=== PATIENT | female | born 1975 | race Caucasian/White ===

== ENCOUNTER 2021-04-25 12:37 | Inpatient (IN) | payer MEDICAID, SELFPAY ==
[2021-04-25 12:38] VITALS: BP 125/86; PULSE 98; RESP 14; TEMP 37.9; O2SAT 94; BMI 33.4
--- NOTE | 2021-04-25 12:38 | ECG_ITS ---
APPROVED REPORT Exam: Resting ECG HR:91 bpm ECG Measurements Heart Rate 91 AXES IA 184 P 57 QRSd 74 QRS 46 QT 370 T 102 QTc 455 Conclusion Normal sinus rhythm Nonspecific T wave abnormality Abnormal ECG Electronically signed by : Angel Crain MD 04/27/2021 11:49:09
[2021-04-25 13:01] VITALS: BP 100/53; PULSE 96; RESP 19; O2SAT 92
--- NOTE | 2021-04-25 13:01 | XR_ITS ---
PROCEDURE: XR CHEST PORTABLE CLINICAL HISTORY: cough COMPARISON: No exams were available for comparison FINDINGS: The cardiomediastinal silhouette and pulmonary vascularity are within normal limits. Patchy density is present in the right lung base consistent with atelectasis or infiltrate with elevated right hemidiaphragm. Left lung is clear. There may be a small effusion as well on the right. There is also some increased density in the right lower lobe laterally No acute bony abnormalities. IMPRESSION: Right basilar atelectasis and or infiltrate with trace effusion Dictated by: Tu Bonds MD 04/25/2021 13:46 Tu Bonds MD in [place] 04/25/2021 13:46
[2021-04-25 13:14] LABS: Influenza A, PCR Not Detected (NotDetected); Influenza B, PCR Not Detected (NotDetected)
[2021-04-25 13:15] LABS: Basophils % 0.3 % (0.1-2.0); Eosinophils % 0.3 % (0.1-12.0); Hematocrit 40.6 % (37.0-47.0); Hemoglobin 13.3 g/dL (12.2-16.2); Lymphocytes # 0.8 K/mm3 (0.7-4.5); Lymphocytes % 9.6 % (10-50); Mean Corpuscular HGB Conc 32.8 g/dL (31.8-35.4); Mean Corpuscular Hemoglobin 28.8 pg (27.0-31.2); Mean Corpuscular Volume 87.8 fl (81-99); Mean Platelet Volume 8.3 fl (7.4-10.4); Monocytes # 0.1 K/mm3 (0.1-1.0); Monocytes % 1.6 % (1.7-9.3); Neutrophils # 7.8 K/mm3 (1.8-7.8); Neutrophils % 88.2 % (37.0-80.0); Platelet Count 223 K/mm3 (142-424); Red Blood Count 4.63 M/mm3 (4.20-5.40); Red Cell Distribution Width 14.2 % (11.5-17.5); White Blood Count 8.8 K/mm3 (4.8-10.8)
[2021-04-25 13:18] LABS: Chloride 101 mmol/L (98-107); Potassium 4.2 mmoL/L (3.5-5.1); Sodium 138 mmol/L (136-145)
[2021-04-25 13:20] LABS: Alanine Aminotransferase 22 U/L (12-78); Aspartate Amino Transferase 34 U/L (14-36); Blood Urea Nitrogen 9 mg/dl (7-17); Creatinine Clearance Estimated 162 mL/min (50-200); Estimated Glomerular Filt Rate 91 ml/min (>60); GFR (African American) 110 ML/MIN (>60)
[2021-04-25 13:21] LABS: Albumin Level 3.9 g/dl (3.5-5.0); Albumin/Globulin Ratio 1.2 (1.1-1.8); Alkaline Phosphatase 86 U/L (38-126); Anion Gap 12.2 mEq/L (5-15); Bilirubin,Total 0.3 mg/dl (0.2-1.3); Calcium 8.7 mg/dl (8.4-10.2); Carbon Dioxide 29 mmol/L (22.0-30.0); Globulin 3.2 g/dL (1.3-3.2); Glucose 116 mg/dl (74-100); Total Protein,Serum 7.1 g/dl (6.3-8.2)
[2021-04-25 13:22] LABS: MANUAL DIFFERENTIAL MANUAL DIFFERENTIAL (MANUAL DIFF)
[2021-04-25 13:35] LABS: Troponin I < 0.01 ng/ml (0.00-0.034)
[2021-04-25 13:38] LABS: Coronavirus 19, PCR Detected (NotDetected)
--- NOTE | 2021-04-25 13:38 | PC.NURSE ---
positive results called to Francisco Javier Durbin RN
--- NOTE | 2021-04-25 13:39 | PC.NURSE ---
lab called with positive COVID result. notified.
[2021-04-25 13:55] LABS: Lymphocytes % 6 % (10-50); Microcytosis 1+; Monocytes % 4 % (2-9); Neutrophils % 90 % (42-76); Platelet Estimate Normal; Total Cells Counted 100
[2021-04-25 14:15] VITALS: BP 104/58; PULSE 92; RESP 18; O2SAT 93
--- NOTE | 2021-04-25 14:53 | HMH.EDSOB ---
ED Disposition Clinical Impression: Pneumonia due to COVID-19 virus Disposition: Home, Self-Care Condition on Discharge: Good Instructions: DI for COVID-19 (Suspected or Confirmed ) Prescriptions: Albuterol Sulfate [Albuterol Sulfate Hfa] 1 puff IH Q6 #1 hfa.aer.ad Prescription Printed - Critical Care Critical Care Time: No Attestation: On , the high probability of a clinically significant, sudden or life threatening deterioration of the following system(s) required my full and direct attention, intervention and personal management. The time I documented below is in addition to time spent performing reported procedures but includes the following listed in this critical care notation. Medical Decision Making - Medical Records Medical records reviewed: Yes: I reviewed the patient's medical records. - [place] Inquiry Pt receiving controlled substance: No Vital Signs: 04/25/21 12:38 04/25/21 13:01 04/25/21 14:15 Temperature 100.3 F H Temperature Source Oral Pulse Rate 96 H 92 H Pulse Rate [Left] 98 H Respiratory Rate 14 19 18 Blood Pressure 100/53 L 104/58 L Blood Pressure [Right Arm] 125/86 Blood Pressure Mean [Right Arm] 99 Blood Pressure Source [Right Arm] Automatic Cuff 02 Sat by Pulse Oximetry 94 L 92 L 93 L Oxygen Delivery Method Room Air Nasal Cannula Oxygen Flow Rate (LPM) 4 - Lab Data Lab Results 04/25/21 12:41: WBC 8.8, RBC 4.63, Hgb 13.3, Hct 40.6, MCV 87.8, MCH 28.8, MCHC 32.8, RDW 14.2, Plt Count 223, MPV 8.3, Neut % (Auto) 88.2 H, Lymph % (Auto) 9.6 L, [place] % (Auto) 1.6 L, Eos % (Auto) 0.3, Baso % (Auto) 0.3, Neut # (Auto) 7.8, Lymph # (Auto) 0.8, [place] # (Auto) 0.1, Eos # (Auto) 0.0, Baso # (Auto) 0.0, Total Counted 100, Neutrophils % (Manual) 90 H, Lymphocytes % (Manual) 6 L, Monocytes % (Manual) 4, Platelet Estimate Normal, Microcytosis 1+ 04/25/21 12:41: Sodium 138, Potassium 4.2, Chloride 101, Carbon Dioxide 29, Anion Gap 12.2, BUN 9, Creatinine 0.70, Estimated Creat Clear 162, Estimated GFR 91, Est GFR ( Amer) 110, Glucose 116 H, Calcium 8.7, Total Bilirubin 0.3, AST 34, ALT 22, Alkaline Phosphatase 86, Troponin I < 0.01, Total Protein 7.1, Albumin 3.9, Globulin 3.2, Albumin/Globulin Ratio 1.2 04/25/21 12:41: SARS-CoV-2 (PCR) Detected A, Influenza A Untype (PCR) Not detected, Influenza Type B (PCR) Not detected 04/25/21 14:11: ABG pH 7.39, ABG pCO2 41.1, ABG pO2 86.1, ABG HCO3 24.4, ABG Total CO2 25.6, ABG O2 Saturation 97, ABG Base Excess -0.6 Result diagrams: 04/25/21 12:41 04/25/21 12:41 Orders (Tests/Meds): ED MEDICATIONS Generic Name Dose Route Start Last Admin Trade Name Freq PRN Reason Stop Dose Admin Diphenhydramine HCl 25 mg 04/25/21 16:20 Diphenhydramine 50mg/Ml Vial IV 05/25/21 16:19 ONCE PRN INFUSION REACTION Hydrocortisone Sodium Succinate 100 mg 04/25/21 16:20 Hydrocortisone Sod Succinate 100mg Vial IV 05/25/21 16:19 ONCE PRN INFUSION REACTION Sodium Chloride 1,000 mls @ 100 mls/hr 04/25/21 16:20 Sod Chlor 0.9% 1000ml Bag IV .Q10H PRN INFUSION REACTION Loratadine 10 mg 04/25/21 16:20 Loratadine 10mg Tablet PO 05/25/21 16:19 ONCE PRN INFUSION REACTION Discontinued Medications Generic Name Dose Route Start Last Admin Trade Name Freq PRN Reason Stop Dose Admin Acetaminophen 1,000 mg 04/25/21 13:01 04/25/21 14:00 Acetaminophen 500mg Tab PO 04/25/21 13:02 1,000 mg ONCE ONE Administration Dexamethasone Sodium Phosphate 10 mg 04/25/21 13:01 04/25/21 14:00 Dexamethasone 4mg/Ml 5ml Mdv IV 04/25/21 13:02 10 mg ONCE ONE Administration Sodium Chloride 1,000 mls @ 999 mls/hr 04/25/21 13:15 04/25/21 14:01 Sod Chlor 0.9% 1000ml Bag IV 04/25/21 14:15 999 mls/hr .Q1H1M GOLDIE Administration Casirivimab/Imdevimab 10 ml/ 110 mls @ 220 mls/hr 04/25/21 16:30 04/25/21 17:05 Sodium Chloride IV 04/25/21 16:59 220 mls/hr ONCE ONE Administration Onda
[2021-04-25 15:14] LABS: ABG Base Excess -0.6 mmol/L (-2.4-2.3); ABG HCO3 24.4 mmhg (22.0-26.0); ABG Oxygen Saturation 97 % (90-100); ABG PCO2 41.1 mmhg (35.0-45.0); ABG PH 7.39 mmol/L (7.35-7.45); ABG PO2 86.1 mmhg (80-100); ABG TCO2 25.6 mmhg (23-27)
--- NOTE | 2021-04-25 19:15 | PC.NURSE ---
entered room to discharge patient and patient did not seem happy to be getting discharged home. MD entered and asked patient what was bothering patient and patient states that she didnt feel comfortable going home with being so short of breath. MD aware.
[2021-04-25 19:53] VITALS: BMI 31.2
--- NOTE | 2021-04-25 20:39 | PC.NURSE ---
Report called to [facility]
[2021-04-25 21:00] VITALS: BP 110/85; PULSE 79; RESP 17; TEMP 36.8; O2SAT 98
--- NOTE | 2021-04-25 21:02 | PC.NURSE ---
patient up to floor via wheelchair.
--- NOTE | 2021-04-25 21:10 | P.PN_ITS ---
Internal Medicine - PN: Subj *Date: 04/25/21 *Time: 21:10 Interval history: This 45-year-old white female presented to the emergency room with shortness of breath. Her has been ill with Covid. She has not been tested but is likely to have Covid. Indeed in the emergency room she tested positive for COVID-19. She states she has been symptomatic for nearly 2 weeks. Her oxygen saturations were quite low. In the emergency room she received monoclonal antibody infusion but with her low oxygen saturation she is admitted for further evaluation and treatment. She states that she has had extreme fatigue with her illness. She is also had diarrhea. Exam Vital signs and Labs for Last 24 Hours: Temp Pulse Resp BP Pulse Ox 100.3 F H 92 H 18 104/58 L 93 L 04/25/21 12:38 04/25/21 14:15 04/25/21 14:15 04/25/21 14:15 04/25/21 14:15 Laboratory Results - last 24 hr 04/25/21 12:41: WBC 8.8, RBC 4.63, Hgb 13.3, Hct 40.6, MCV 87.8, MCH 28.8, MCHC 32.8, RDW 14.2, Plt Count 223, MPV 8.3, Neut % (Auto) 88.2 H, Lymph % (Auto) 9.6 L, [place] % (Auto) 1.6 L, Eos % (Auto) 0.3, Baso % (Auto) 0.3, Neut # (Auto) 7.8, Lymph # (Auto) 0.8, [place] # (Auto) 0.1, Eos # (Auto) 0.0, Baso # (Auto) 0.0, Total Counted 100, Neutrophils % (Manual) 90 H, Lymphocytes % (Manual) 6 L, Monocytes % (Manual) 4, Platelet Estimate Normal, Microcytosis 1+ 04/25/21 12:41: Sodium 138, Potassium 4.2, Chloride 101, Carbon Dioxide 29, Anion Gap 12.2, BUN 9, Creatinine 0.70, Estimated Creat Clear 162, Estimated GFR 91, Est GFR ( Amer) 110, Glucose 116 H, Calcium 8.7, Total Bilirubin 0.3, AST 34, ALT 22, Alkaline Phosphatase 86, Troponin I < 0.01, Total Protein 7.1, Albumin 3.9, Globulin 3.2, Albumin/Globulin Ratio 1.2 04/25/21 12:41: SARS-CoV-2 (PCR) Detected A, Influenza A Untype (PCR) Not detected, Influenza Type B (PCR) Not detected 04/25/21 14:11: ABG pH 7.39, ABG pCO2 41.1, ABG pO2 86.1, ABG HCO3 24.4, ABG Total CO2 25.6, ABG O2 Saturation 97, ABG Base Excess -0.6 I & O for Last 24 hours: Intake & Output 04/23/21 04/24/21 04/25/21 04/26/21 11:59 11:59 11:59 11:59 Weight 220 lb - Constitutional no acute distress - *Routine HEENT Exam Head: Present: normocephalic Eye: Present: PERRL ENT: Present: mucous membranes moist - *Routine Respiratory Exam Present: decreased breath sounds, rales (Few bibasilar) - *Routine Cardiovascular Exam Present: RRR - *Routine Abdominal Exam Present: soft. Absent: tenderness - *Routine Extremities Exam Absent: edema - *Routine Skin Exam Present: intact - *Routine Neurological Exam Present: alert, oriented X3 Assessment and Plan - Assessment and plan all Dx Assessment and Plan for all problems:: See orders. Pulmonary consult.
[2021-04-25 21:28] VITALS: BP 111/73; PULSE 80; RESP 19; TEMP 36.3; O2SAT 95
[2021-04-25 21:45] VITALS: O2SAT 94
[2021-04-25 22:07] LABS: Coronavirus 19 IgG Antibody Positive (Negative); Coronavirus 19 IgM Antibody Negative (Negative)
[2021-04-26] VITALS (8 sets, daily range): BP systolic 110–132; BP diastolic 73–84; PULSE 60–88; RESP 20–22; TEMP 36.4–37; O2SAT 90–96; BMI 31.2
--- NOTE | 2021-04-26 04:26 | PC.NURSE ---
Patient is alert and oriented x4. Patient was a new admission from the ED this shift. Patient is on 4LNC with oxygen saturation in the mid 90s. Patient has a NS infusing at 100 ml/hr in her LFA. Call light within reach, vitals stable, will continue to monitor.
[2021-04-26 07:20] LABS: Basophils % 0.2 % (0.1-2.0); Eosinophils % 0.2 % (0.1-12.0); Hematocrit 40.5 % (37.0-47.0); Hemoglobin 13.2 g/dL (12.2-16.2); Lymphocytes # 0.6 K/mm3 (0.7-4.5); Lymphocytes % 9.7 % (10-50); Mean Corpuscular HGB Conc 32.7 g/dL (31.8-35.4); Mean Corpuscular Hemoglobin 29.2 pg (27.0-31.2); Mean Corpuscular Volume 89.2 fl (81-99); Mean Platelet Volume 9.8 fl (7.4-10.4); Monocytes # 0.2 K/mm3 (0.1-1.0); Monocytes % 3.7 % (1.7-9.3); Neutrophils # 5.5 K/mm3 (1.8-7.8); Neutrophils % 86.2 % (37.0-80.0); Platelet Count 51 K/mm3 (142-424); Red Blood Count 4.54 M/mm3 (4.20-5.40); Red Cell Distribution Width 14.4 % (11.5-17.5); White Blood Count 6.4 K/mm3 (4.8-10.8)
[2021-04-26 07:22] LABS: Chloride 110 mmol/L (98-107); Sodium 141 mmol/L (136-145)
[2021-04-26 07:23] LABS: MANUAL DIFFERENTIAL MANUAL DIFFERENTIAL (MANUAL DIFF)
[2021-04-26 07:24] LABS: Alanine Aminotransferase 19 U/L (12-78); Alkaline Phosphatase 65 U/L (38-126); Aspartate Amino Transferase 45 U/L (14-36); Bilirubin,Total 0.5 mg/dl (0.2-1.3); Blood Urea Nitrogen 7 mg/dl (7-17); Carbon Dioxide 23 mmol/L (22.0-30.0); Creatinine Clearance Estimated 212 mL/min (50-200); Estimated Glomerular Filt Rate 134 ml/min (>60); GFR (African American) 162 ML/MIN (>60)
[2021-04-26 07:25] LABS: Albumin Level 3.6 g/dl (3.5-5.0); Albumin/Globulin Ratio 1.2 (1.1-1.8); Calcium 8.5 mg/dl (8.4-10.2); Globulin 2.9 g/dL (1.3-3.2); Glucose 129 mg/dl (74-100); Total Protein,Serum 6.5 g/dl (6.3-8.2)
--- NOTE | 2021-04-26 07:29 | P.CONPHA_ITS ---
[facility] Pharmacy VTE Monitoring - Patient Demographics Admission date: 04/25/21 Report Date: 04/26/21 Time: 07:29 Allergies/Adverse Reactions: Patient Allergies bee venom protein (honey bee) Allergy (Severe, Verified 04/25/21 21:34) Anaphylaxis Height: 1.73 m Weight: 93.497 kg Patient Problems: Current Active Problems Pneumonia due to COVID-19 virus (Acute) - VTE Risk Labs: VTE Related Lab Results Hgb 13.2 g/dL (12.2-16.2) 04/26/21 06:15 Hct 40.5 % (37.0-47.0) 04/26/21 06:15 Plt Count 51 K/mm3 (142-424) L D 04/26/21 06:15 BUN 7 mg/dl (7-17) 04/26/21 06:15 Creatinine 0.50 mg/dl (0.52-1.04) L D 04/26/21 06:15 Estimated Creat Clear 212 mL/min (50-200) 04/26/21 06:15 VTE Score: 6 VTE Risk Level: Moderate Risk - Prophylaxis VTE Prophylaxis Ordered?: Yes Types of VTE Prophylaxis: TEDS Knee High, Pharmacological Location of Applied Device: Bilateral Lower Extremeties Pharmacologic Type: Enoxaparin
[2021-04-26 08:17] LABS: Lymphocytes % 3 % (10-50); Monocytes % 2 % (2-9); Neutrophils % 95 % (42-76); Total Cells Counted 100
[2021-04-26 08:18] LABS: Platelet Estimate Normal
--- NOTE | 2021-04-26 08:44 | HMH.PULMCON ---
*Admission Date: 04/25/21 *Reason for consult:: COVID-19 pneumonia *History of present illness: Ms. Moreno is a 45-year-old female no significant smoking history, carries a diagnosis of asthma at baseline currently on Advair along with Spiriva presented to the hospital worsening respiratory failure and found to be COVID-19 positive. Patient did not received her vaccine. He admits prior diagnosis of COVID-19 pneumonia 6 months ago during which was managed on outpatient basis he admits sick contacts, her is diagnosed with COVID-19 pneumonia currently [facility] History Medical History: Reports:: MRSA Denies:: Cancer, Diabetes Mellitus Type 1, Diabetes Mellitus Type 2 *Have you ever received a pneumonia vaccine?: No *Have you received a flu vaccine this season?: Yes Other Medical History: Reports: Anemia Other Surgeries: Yes: (3), Tubal Ligation Amputation: Yes (RBK) - *Social History Last grade of school completed: Advanced degree Smoking Status: Never smoker Alcohol Intake: former Alcohol Intake Frequency:: 3 or more drinks per day *Occupational Status:: disabled Housing: apartment Household Members: spouse, children *Travel in the last 8 weeks: None Family Hx:: Anemia, Asthma, Cancer, Coronary Artery Disease, Diabetes, Heart Attack, Hyperlipidemia, Hypertension, Stroke, Thyroid Disorder, Substance abuse, Alcoholism, Mental illness, Other ROS - Cons Reports anorexia, Reports body ache(s) - ENT Denies abnormal hearing - Card Reports shortness of breath, Reports shortness of breath with activity, Denies generalized swelling - Resp Respiratory: Reports chest congestion, Reports cough, Reports excessive phlegm production - GI Gastrointestingal: Denies: abdominal pain - Psych Denies abnormal sleep pattern Meds Home Medications Medication Instructions Recorded Confirmed Type Albuterol Sulfate [Albuterol 1 puff IH Q6 #1 hfa.aer.ad 04/25/21 Rx Sulfate Hfa] Buspirone HCl [Buspirone 15 mg 15 mg PO TID 04/25/21 04/25/21 History Tablets] Escitalopram Oxalate [Lexapro] 20 mg PO DAILY 04/25/21 04/25/21 History Fluticasone/Salmeterol [Advair 1 puff IH BID 04/25/21 04/25/21 History 500/50mcg diskus] [place] Carbonate [[place] 450 mg PO BID 04/25/21 04/25/21 History Carbonate ER] Loratadine [Claritin 10mg 10 mg PO DAILY 04/25/21 04/25/21 History Tablet] Montelukast Sodium [Singulair 10mg 10 mg PO PM 04/25/21 04/25/21 History tablet] Omeprazole [Omeprazole 40mg 40 mg PO DAILY 04/25/21 04/25/21 History Capsule] Tiotropium [place] [Spiriva 2 puffs IH DAILY 04/25/21 04/26/21 History Respimat] armodafiniL [Nuvigil] 250 mg PO DAILY 04/25/21 04/26/21 History Allergies Allergy/AdvReac Type Severity Reaction Status Date / Time bee venom protein (honey bee) Allergy Severe Anaphylaxis Verified 04/25/21 21:34 Exam - Constitutional Constitutional:: Present: no acute distress, comfortable - HENMT Exam HENMT: Present: normocephalic, atraumatic - Eye Exam Eyes:: Present: normal appearance both eyes and related structures - Neck Exam Neck:: Present: normal visual inspection - Respiratory Exam Respiratory:: Present: able to speak in complete sentences, no respiratory distress, crackles. Absent: wheezing - Cardiovascular Exam Cardiac:: Present: S1, S2 - GI Exam GI:: Present: soft - Skin Exam Skin: Present: warm, no rash, dry - Neurological Exam Neurological: Present: alert, awake, normal cognition Internal Medicine - CN: Reslt - Labs CBC & Chem 7: 04/26/21 06:15 04/26/21 06:15 Labs: Short CBC 04/25/21 04/26/21 Range/Units 12:41 06:15 WBC 8.8 6.4 D (4.8-10.8) K/mm3 Hgb 13.3 13.2 (12.2-16.2) g/dL Hct 40.6 40.5 (37.0-47.0) % Plt Count 223 51 L D (142-424) K/mm3 BMP 04/25/21 04/26/21 12:41 06:15 Sodium 138 141 Potassium 4.2 5.0 Chloride 101 110 H Carbon Dioxide 29 23 D BUN 9 7 Creatinine 0.70
--- NOTE | 2021-04-26 09:19 | HMH.PULMCON ---
*Admission Date: 04/25/21 *History of present illness: Symptomatic for the last 2 weeks. IgG antibody positive. COVID-19 PCR also resulted positive Lymphopenia Chest x-ray showed bilateral patchy airspace disease with right lower lobe infiltrate/effusion [facility] History Medical History: Reports:: MRSA Denies:: Cancer, Diabetes Mellitus Type 1, Diabetes Mellitus Type 2 *Have you ever received a pneumonia vaccine?: No *Have you received a flu vaccine this season?: Yes Other Medical History: Reports: Anemia Other Surgeries: Yes: (3), Tubal Ligation Amputation: Yes (RBK) - *Social History Last grade of school completed: Advanced degree Smoking Status: Never smoker Alcohol Intake: former Alcohol Intake Frequency:: 3 or more drinks per day *Occupational Status:: disabled Housing: apartment Household Members: spouse, children *Travel in the last 8 weeks: None Family Hx:: Anemia, Asthma, Cancer, Coronary Artery Disease, Diabetes, Heart Attack, Hyperlipidemia, Hypertension, Stroke, Thyroid Disorder, Substance abuse, Alcoholism, Mental illness, Other Meds Home Medications Medication Instructions Recorded Confirmed Type Albuterol Sulfate [Albuterol 1 puff IH Q6 #1 hfa.aer.ad 04/25/21 Rx Sulfate Hfa] Buspirone HCl [Buspirone 15 mg 15 mg PO TID 04/25/21 04/25/21 History Tablets] Escitalopram Oxalate [Lexapro] 20 mg PO DAILY 04/25/21 04/25/21 History Fluticasone/Salmeterol [Advair 1 puff IH BID 04/25/21 04/25/21 History 500/50mcg diskus] [place] Carbonate [[place] 450 mg PO BID 04/25/21 04/25/21 History Carbonate ER] Loratadine [Claritin 10mg 10 mg PO DAILY 04/25/21 04/25/21 History Tablet] Montelukast Sodium [Singulair 10mg 10 mg PO PM 04/25/21 04/25/21 History tablet] Omeprazole [Omeprazole 40mg 40 mg PO DAILY 04/25/21 04/25/21 History Capsule] Tiotropium [place] [Spiriva 4 gm IH BID 04/25/21 04/25/21 History Respimat] armodafiniL [Nuvigil] 200 mg PO DAILY 04/25/21 04/25/21 History Allergies Allergy/AdvReac Type Severity Reaction Status Date / Time bee venom protein (honey bee) Allergy Severe Anaphylaxis Verified 04/25/21 21:34 Internal Medicine - CN: Reslt - Labs CBC & Chem 7: 04/26/21 06:15 04/26/21 06:15 Labs: Short CBC 04/25/21 04/26/21 Range/Units 12:41 06:15 WBC 8.8 6.4 D (4.8-10.8) K/mm3 Hgb 13.3 13.2 (12.2-16.2) g/dL Hct 40.6 40.5 (37.0-47.0) % Plt Count 223 51 L D (142-424) K/mm3 BMP 04/25/21 04/26/21 12:41 06:15 Sodium 138 141 Potassium 4.2 5.0 Chloride 101 110 H Carbon Dioxide 29 23 D BUN 9 7 Creatinine 0.70 0.50 L D Glucose 116 H 129 H Calcium 8.7 8.5 Cardiac Enzymes 04/25/21 Range/Units 12:41 Troponin I < 0.01 (0.00-0.034) ng/ml Liver Function 04/25/21 04/26/21 Range/Units 12:41 06:15 Total Bilirubin 0.3 0.5 (0.2-1.3) mg/dl AST 34 45 H D (14-36) U/L ALT 22 19 (12-78) U/L Alkaline Phosphatase 86 65 (38-126) U/L Albumin 3.9 3.6 (3.5-5.0) g/dl - ABG Interpretation ABG results: 04/25/21 14:11 ABG pH 7.39 ABG pCO2 41.1 ABG pO2 86.1 ABG HCO3 24.4 ABG Total CO2 25.6 ABG O2 Saturation 97 ABG Base Excess -0.6 Assessment and Plan - Assessment and plan all Dx Assessment and Plan for all problems:: #COVID-19 pneumonia:
[2021-04-26 09:37] LABS: Lactate Dehydrogenase 302 U/L (313-618)
[2021-04-26 09:45] LABS: C-Reactive Protein 109.6 mg/L (0-4); D-Dimer 0.86 ug/mL (0.0-0.5)
--- NOTE | 2021-04-26 10:02 | HMH.HP ---
*Admission Date: 04/25/21 *Chief complaint: Shortness of breath with extreme weakness. *History of present illness: Ms. Moreno is a 45-year-old female with a history of asthma, anxiety/depression and bipolar disorder She presented to the emergency room with shortness of breath and extreme weakness. She describes being sick for 2 weeks. She felt her illness started with diarrhea and progressed with a cough and shortness of breath. She states her and daughter currently are ill with Covid but are in the recovery phase. She previously had Covid illness during the winter and recovered on her own and thought she could do so at this time as well. Thus she has not received the Covid immunization. In the emergency room her Covid test was positive. She received the monoclonal antibody infusion. Her O2 sats remained low and thus she was admitted for further evaluation and treatment. 04/25/21 12:41: WBC 8.8, RBC 4.63, Hgb 13.3, Hct 40.6, MCV 87.8, MCH 28.8, MCHC 32.8, RDW 14.2, Plt Count 223, MPV 8.3, Neut % (Auto) 88.2 H, Lymph % (Auto) 9.6 L, [place] % (Auto) 1.6 L, Eos % (Auto) 0.3, Baso % (Auto) 0.3, Neut # (Auto) 7.8, Lymph # (Auto) 0.8, [place] # (Auto) 0.1, Eos # (Auto) 0.0, Baso # (Auto) 0.0, Total Counted 100, Neutrophils % (Manual) 90 H, Lymphocytes % (Manual) 6 L, Monocytes % (Manual) 4, Platelet Estimate Normal, Microcytosis 1+ 04/25/21 12:41: Sodium 138, Potassium 4.2, Chloride 101, Carbon Dioxide 29, Anion Gap 12.2, BUN 9, Creatinine 0.70, Estimated Creat Clear 162, Estimated GFR 91, Est GFR ( Amer) 110, Glucose 116 H, Calcium 8.7, Total Bilirubin 0.3, AST 34, ALT 22, Alkaline Phosphatase 86, Troponin I < 0.01, Total Protein 7.1, Albumin 3.9, Globulin 3.2, Albumin/Globulin Ratio 1.2 04/25/21 12:41: SARS-CoV-2 (PCR) Detected A, Influenza A Untype (PCR) Not detected, Influenza Type B (PCR) Not detected 04/25/21 14:11: ABG pH 7.39, ABG pCO2 41.1, ABG pO2 86.1, ABG HCO3 24.4, ABG Total CO2 25.6, ABG O2 Saturation 97, ABG Base Excess -0.6 Chest x-ray on admission revealed the following: IMPRESSION: Right basilar atelectasis and or infiltrate with trace effusion A.m. of patient continues to feel extreme fatigue and is short of breath. She does have a congestive cough which is sometimes productive. [facility] History Medical History: Reports:: Anxiety, Asthma, Depression, Gastroesophageal Reflux Disease(GERD), Gastrointestinal Bleed (She had a GI bleed due to frequent dosing with prednisone for her asthma), MRSA Denies:: Cancer, Diabetes Mellitus Type 1, Diabetes Mellitus Type 2 *Have you ever received a pneumonia vaccine?: No *Have you received a flu vaccine this season?: Yes Other Medical History: Reports: Anemia Comment:: narcolepsy Other Surgeries: Yes: (3), Tubal Ligation Amputation: Yes (RBK) - *Social History Last grade of school completed: Advanced degree Smoking Status: Never smoker Alcohol Intake: former Alcohol Intake Frequency:: holidays/special occasions only *Occupational Status:: disabled Housing: apartment Household Members: spouse, children *Travel in the last 8 weeks: None - Psychiatric History Pschychiatric History:: Reports:: Anxiety, Bipolar Disorder, Depression Family Hx:: Anemia, Asthma, Cancer, Coronary Artery Disease, Diabetes, Heart Attack, Hyperlipidemia, Hypertension, Stroke, Thyroid Disorder, Substance abuse, Alcoholism, Mental illness, Other Review of Systems - Constitutional Reports fatigue, Reports fever(s), Reports lack of energy - Eyes Denies change in vision - ENT Denies ear pain, Denies sore throat - *Cardiovascular Reports shortness of breath, Denies chest pain, Denies irregular heart rhythm, Denies leg swelling - *Respiratory Reports chest congestion, Reports cough, Reports shortness of breath, Reports shortness of breath with activity - *Gastrointestinal Reports loose stools, Reports nausea, Reports vomiting, Denies abdominal pain, Denies bloating, Denies change in [place]
--- NOTE | 2021-04-26 10:30 | HMH.PHAINT ---
MEDICATION RECONCILIATION COMPLETED ON PATIENT USING EXTERNAL FILL HISTORY FROM PHARMACY. -MANUEL DURAN, LUIS ENRIQUED
--- NOTE | 2021-04-26 19:42 | PC.NURSE ---
PT IS RESTING IN BED. NO COMPLAINTS OF DISCOMFORT OR SOA. PT HAS BEEN AMBULATING TO THE BATHROOM AND AROUND THE ROOM INDEPENDENTLY. O2 SATURATION HAS MAINTAINED IN THE MID 90'S ON 2 L NC. THIS SHIFT. LUNG SOUNDS DIMINISHED WITH FINE CRACKLES. ABDOMEN SOFT/NON TENDER WITH ACTIVE BOWEL SOUNDS. NO SWELLING NOTED TO BLE. EATING AND DRINKING WELL. WILL CONTINUE TO MONITOR.
[2021-04-27] VITALS (8 sets, daily range): BP systolic 113–138; BP diastolic 64–93; PULSE 67–76; RESP 18–20; TEMP 36.3–37; O2SAT 88–97; BMI 31.2; BMI 31.0
--- NOTE | 2021-04-27 03:02 | PC.NURSE ---
No acute changes thus far in shift. Pt denies any pain, N/V, or shortness of breath. Pt slept well last night. Admin meds per NOV, pt is on 2L NC with stats >90%. Pt is able to make needs known to staff. VSS, no concerns at this time.
[2021-04-27 06:35] LABS: Basophils % 0.7 % (0.1-2.0); Hematocrit 35.4 % (37.0-47.0); Lymphocytes # 0.8 K/mm3 (0.7-4.5); Lymphocytes % 13.7 % (10-50); Mean Corpuscular HGB Conc 32.4 g/dL (31.8-35.4); Mean Corpuscular Hemoglobin 28.6 pg (27.0-31.2); Mean Corpuscular Volume 88.3 fl (81-99); Mean Platelet Volume 8.7 fl (7.4-10.4); Monocytes # 0.3 K/mm3 (0.1-1.0); Monocytes % 4.5 % (1.7-9.3); Neutrophils # 4.5 K/mm3 (1.8-7.8); Platelet Count 291 K/mm3 (142-424); Red Blood Count 4.01 M/mm3 (4.20-5.40); Red Cell Distribution Width 14.2 % (11.5-17.5); White Blood Count 5.6 K/mm3 (4.8-10.8)
[2021-04-27 06:40] LABS: Chloride 109 mmol/L (98-107); Potassium 4.4 mmoL/L (3.5-5.1); Sodium 144 mmol/L (136-145)
[2021-04-27 06:43] LABS: Alanine Aminotransferase 21 U/L (12-78); Albumin Level 3.5 g/dl (3.5-5.0); Albumin/Globulin Ratio 1.1 (1.1-1.8); Alkaline Phosphatase 72 U/L (38-126); Anion Gap 12.4 mEq/L (5-15); Aspartate Amino Transferase 39 U/L (14-36); Bilirubin,Total 0.2 mg/dl (0.2-1.3); Blood Urea Nitrogen 7 mg/dl (7-17); Calcium 8.8 mg/dl (8.4-10.2); Carbon Dioxide 27 mmol/L (22.0-30.0); Creatinine Clearance Estimated 212 mL/min (50-200); Estimated Glomerular Filt Rate 134 ml/min (>60); GFR (African American) 162 ML/MIN (>60); Globulin 3.3 g/dL (1.3-3.2); Glucose 125 mg/dl (74-100); Total Protein,Serum 6.8 g/dl (6.3-8.2)
[2021-04-27 06:51] LABS: Hemoglobin 11.5 g/dL (12.2-16.2)
--- NOTE | 2021-04-27 08:48 | HMH.PULMPN ---
Internal Medicine - PN: Subj *Date: 04/28/21 *Time: 09:15 Interval history: No acute resp events. Denies nay new complaints Exam - Constitutional Constitutional:: Present: no acute distress - HENMT Exam HENMT: Present: normocephalic, moist mucous membranes - Eye Exam Eyes:: Present: normal appearance both eyes and related structures - Neck Exam Neck:: Present: normal visual inspection - Respiratory Exam Respiratory:: Present: able to speak in complete sentences, no respiratory distress - Cardiovascular Exam Cardiac:: Present: S1, S2 - GI Exam GI:: Present: soft - Skin Exam Skin: Present: warm - Neurological Exam Neurological: Present: alert, awake, normal cognition Assessment and Plan - Assessment and plan all Dx Assessment and Plan for all problems:: #History of asthma: #COVID-19 pneumonia: Ms. Moreno is a 45-year-old female no significant smoking history, unvaccinated, prior history of COVID-19 pneumonia presented to the hospital worsening respiratory failure and found to be positive for COVID-19 pneumonia. Positive for sick contacts, her was diagnosed with COVID-19 pneumonia. Symptomatic for the last 2 weeks. IgG antibody positive. COVID-19 PCR also resulted positive Lymphopenia Chest x-ray on admission showed bilateral patchy airspace disease with right lower lobe infiltrate/effusion. Inflammatory markers elevated with D-dimer 0.86, CRP at 109. Patient received monoclonal antibody infusion in the ER No acute respirations overnight. Patient admits to improvement in her symptoms. Auscultation continue to reveal clear breath sounds with no wheezing Plan: -Continue Advair twice daily along with Spiriva and albuterol every 6 hours as needed -Initiate levofloxacin for possible community-acquired pneumonia. -Initiate remdesivir and dexamethasone for COVID-19 pneumonia. -Continue oxygen supplementation to maintain O2 saturation goal of 88 to 92%, patient currently receiving 2 L nasal cannula, wean as tolerated #Thank you for involving pulmonary in this patient care. We will continue to follow.
--- NOTE | 2021-04-27 09:02 | HMH.ACPN2 ---
Internal Medicine - PN: Subj *Date: 04/27/21 *Time: 09:02 Interval history: Patient still gets very dyspneic with any movement. She states she went to the bathroom and had to take her oxygen off and was very short of breath by the time she got in the bed. She states her chest still feels tight. She is trying to eat some breakfast this morning. Exam Vital signs and Labs for Last 24 Hours: Temp Pulse Resp BP Pulse Ox 97.9 F 76 18 113/70 90 L 04/27/21 08:00 04/27/21 08:00 04/27/21 08:00 04/27/21 08:00 04/27/21 08:00 Laboratory Results - last 24 hr 04/26/21 09:18: D-Dimer 0.86 H 04/26/21 09:18: Lactate Dehydrogenase 302 L, C-Reactive Protein 109.6 H 04/27/21 05:56: WBC 5.6, RBC 4.01 L, Hgb 11.5 L D, Hct 35.4 L, MCV 88.3, MCH 28.6, MCHC 32.4, RDW 14.2, Plt Count 291 D, MPV 8.7, Neut % (Auto) 81.0 H, Lymph % (Auto) 13.7, [place] % (Auto) 4.5, Eos % (Auto) 0.0 L, Baso % (Auto) 0.7, Neut # (Auto) 4.5, Lymph # (Auto) 0.8, [place] # (Auto) 0.3, Eos # (Auto) 0.0, Baso # (Auto) 0.0 04/27/21 05:56: Sodium 144, Potassium 4.4, Chloride 109 H, Carbon Dioxide 27, Anion Gap 12.4, BUN 7, Creatinine 0.50 L, Estimated Creat Clear 212, Estimated GFR 134, Est GFR ( Amer) 162, Glucose 125 H, Calcium 8.8, Total Bilirubin 0.2, AST 39 H, ALT 21, Alkaline Phosphatase 72, Total Protein 6.8, Albumin 3.5, Globulin 3.3 H, Albumin/Globulin Ratio 1.1 I & O for Last 24 hours: Intake & Output 04/24/21 04/25/21 04/26/21 04/27/21 11:59 11:59 11:59 11:59 Intake Total 720 / 720 3833 / 3833 Balance 720 / 720 3833 / 3833 Weight 206 lb 2 oz 206 lb 1 oz - Constitutional no acute distress - *Routine Respiratory Exam Present: decreased breath sounds, rales (Bibasilar) - *Routine Cardiovascular Exam Present: RRR - *Routine Abdominal Exam Present: soft, normoactive bowel sounds. Absent: tenderness - *Routine Extremities Exam Absent: cyanosis, clubbing, edema - *Routine Skin Exam Present: warm. Absent: rash - *Routine Neurological Exam Present: alert, oriented X3 Assessment and Plan (1) Pneumonia due to COVID-19 virus Status: Acute Category: Medical Code(s): U07.1 - COVID-19; J12.82 - Pneumonia due to coronavirus disease 2019 (2) Asthma Status: Chronic Category: Medical Code(s): J45.909 - Unspecified asthma, uncomplicated (3) Bipolar 1 disorder Status: Chronic Category: Medical Code(s): F31.9 - Bipolar disorder, unspecified (4) GERD (gastroesophageal reflux disease) Status: Chronic Category: Medical Code(s): K21.9 - Gastro-esophageal reflux disease without esophagitis - Assessment and plan all Dx Assessment and Plan for all problems:: Patient has been started on Covid protocol and is being followed by pulmonology.
--- NOTE | 2021-04-27 17:35 | PC.NURSE ---
Pt is alert and oriented x4. She is able to verbalize her needs. She ambulates independently to the bathroom and tolerates well. She is on 2L NC with O2 sats maintaining 95% or >. She has a dry cough. Sputum unable to be attained. She has had a couple of episodes of stress incontinence due to heavy coughing. Pads and chuxs provided to patient. Appetite is ok. She was encouraged to get up to the chair today but stayed in bed instead. No change from morning assessment.
[2021-04-28] VITALS (8 sets, daily range): BP systolic 126–165; BP diastolic 83–99; PULSE 58–69; RESP 14–20; TEMP 36.1–37; O2SAT 95–98; BMI 31.2
--- NOTE | 2021-04-28 03:10 | PC.NURSE ---
No acute changes thus far in shift. Pt is A/O x4. Remains on 2L NC with stats >90%. Pt has had a persistent rattling cough t/o night. Pt denies any pain, N/V. Admin meds per NOV, call light within reach, will continue to monitor.
[2021-04-28 07:00] LABS: Basophils # 0.1 K/mm3 (0-0.2); Basophils % 0.8 % (0.1-2.0); Eosinophils % 0.2 % (0.1-12.0); Hematocrit 34.9 % (37.0-47.0); Hemoglobin 11.5 g/dL (12.2-16.2); Lymphocytes # 1.3 K/mm3 (0.7-4.5); Lymphocytes % 22.5 % (10-50); Mean Corpuscular Hemoglobin 28.9 pg (27.0-31.2); Mean Corpuscular Volume 87.6 fl (81-99); Mean Platelet Volume 8.2 fl (7.4-10.4); Monocytes # 0.4 K/mm3 (0.1-1.0); Monocytes % 7.2 % (1.7-9.3); Neutrophils # 3.9 K/mm3 (1.8-7.8); Neutrophils % 69.3 % (37.0-80.0); Platelet Count 328 K/mm3 (142-424); Red Blood Count 3.98 M/mm3 (4.20-5.40); Red Cell Distribution Width 14.4 % (11.5-17.5); White Blood Count 5.6 K/mm3 (4.8-10.8)
[2021-04-28 07:17] LABS: Chloride 108 mmol/L (98-107)
[2021-04-28 07:18] LABS: Potassium 4.2 mmoL/L (3.5-5.1); Sodium 143 mmol/L (136-145)
[2021-04-28 07:20] LABS: Alanine Aminotransferase 29 U/L (12-78); Alkaline Phosphatase 68 U/L (38-126); Aspartate Amino Transferase 40 U/L (14-36); Bilirubin,Total 0.3 mg/dl (0.2-1.3); Blood Urea Nitrogen 10 mg/dl (7-17); Creatinine Clearance Estimated 177 mL/min (50-200); Estimated Glomerular Filt Rate 109 ml/min (>60); GFR (African American) 131 ML/MIN (>60)
[2021-04-28 07:21] LABS: Albumin Level 3.6 g/dl (3.5-5.0); Albumin/Globulin Ratio 1.2 (1.1-1.8); Anion Gap 11.2 mEq/L (5-15); Calcium 8.8 mg/dl (8.4-10.2); Carbon Dioxide 28 mmol/L (22.0-30.0); Glucose 116 mg/dl (74-100); Total Protein,Serum 6.6 g/dl (6.3-8.2)
--- NOTE | 2021-04-28 08:37 | XR_ITS ---
PROCEDURE: XR CHEST PORTABLE CLINICAL HISTORY: pneumonia, COVID + COMPARISON: CR XR CHEST PORTABLE from 04/25/2021 FINDINGS: The cardiomediastinal silhouette and pulmonary vascularity are within normal limits. Patchy infiltrate is present in the right mid and right lower lung zone with right basilar atelectasis. Left lung is clear. Possible small right pleural effusion No acute bony abnormalities. IMPRESSION: Right lower lobe pneumonia slightly worse with increasing right basilar atelectasis. There may be a a small right effusion not significantly changed. Dictated by: Tu Bonds MD 04/28/2021 11:18 Tu Bonds MD in [facility] 04/28/2021 11:18
--- NOTE | 2021-04-28 08:57 | P.PN_ITS ---
Internal Medicine - PN: Subj *Date: 04/28/21 *Time: 08:57 Interval history: Patient states she still feels weak and short of breath with any movement. If she takes her oxygen off she also gets short of breath. She still has a congested cough. She slept off and on last night did try to eat a little breakfast this morning. Exam Vital signs and Labs for Last 24 Hours: Temp Pulse Resp BP Pulse Ox 97.4 F L 58 L 17 149/89 H 97 04/28/21 07:41 04/28/21 07:41 04/28/21 07:41 04/28/21 07:41 04/28/21 07:41 Laboratory Results - last 24 hr 04/28/21 06:42: WBC 5.6, RBC 3.98 L, Hgb 11.5 L, Hct 34.9 L, MCV 87.6, MCH 28.9, MCHC 33.0, RDW 14.4, Plt Count 328, MPV 8.2, Neut % (Auto) 69.3, Lymph % (Auto) 22.5, [place] % (Auto) 7.2, Eos % (Auto) 0.2, Baso % (Auto) 0.8, Neut # (Auto) 3.9, Lymph # (Auto) 1.3, [place] # (Auto) 0.4, Eos # (Auto) 0.0, Baso # (Auto) 0.1 04/28/21 06:42: Sodium 143, Potassium 4.2, Chloride 108 H, Carbon Dioxide 28, Anion Gap 11.2, BUN 10 D, Creatinine 0.60, Estimated Creat Clear 177, Estimated GFR 109, Est GFR ( Amer) 131, Glucose 116 H, Calcium 8.8, Total Bilirubin 0.3, AST 40 H, ALT 29 D, Alkaline Phosphatase 68, Total Protein 6.6, Albumin 3.6, Globulin 3.0, Albumin/Globulin Ratio 1.2 I & O for Last 24 hours: Intake & Output 04/25/21 04/26/21 04/27/21 04/28/21 11:59 11:59 11:59 11:59 Intake Total 720 / 720 3833 / 3833 2542 / 2542 Balance 720 / 720 3833 / 3833 2542 / 2542 Weight 206 lb 2 oz 205 lb 0.478 oz 206 lb 0.916 oz - Constitutional no acute distress - *Routine Respiratory Exam Present: decreased breath sounds, rales (right base) - *Routine Cardiovascular Exam Present: RRR - *Routine Abdominal Exam Present: soft, normoactive bowel sounds. Absent: tenderness - *Routine Extremities Exam Absent: cyanosis, clubbing, edema - *Routine Skin Exam Present: warm. Absent: rash - *Routine Neurological Exam Present: alert, oriented X3 Assessment and Plan (1) Pneumonia due to COVID-19 virus Status: Acute Category: Medical Code(s): U07.1 - COVID-19; J12.82 - Pneumonia due to coronavirus disease 2019 (2) Asthma Status: Chronic Category: Medical Code(s): J45.909 - Unspecified asthma, uncomplicated (3) Bipolar 1 disorder Status: Chronic Category: Medical Code(s): F31.9 - Bipolar disorder, unspecified (4) GERD (gastroesophageal reflux disease) Status: Chronic Category: Medical Code(s): K21.9 - Gastro-esophageal reflux disease without esophagitis - Assessment and plan all Dx Assessment and Plan for all problems:: Continue current treatment, pulmonology to follow.
--- NOTE | 2021-04-28 11:29 | HMH.PULMPN ---
Internal Medicine - PN: Subj *Date: 04/28/21 *Time: 11:29 Interval history: No acute respiratory events overnight. Patient admits slight improvement in her symptoms though she still complains of shortness of breath. She also admits cough with productive phlegm Exam - Constitutional Constitutional:: Present: no acute distress, comfortable - HENMT Exam HENMT: Present: atraumatic - Eye Exam Eyes:: Present: normal appearance both eyes and related structures - Neck Exam Neck:: Present: normal visual inspection - Respiratory Exam Respiratory:: Present: able to speak in complete sentences, respiratory distress, wheezing - Cardiovascular Exam Cardiac:: Present: S1, S2 - GI Exam GI:: Present: soft, no hepatosplenomegaly - Skin Exam Skin: Present: warm, no rash - Neurological Exam Neurological: Present: alert, awake, normal cognition - Extremities Exam Extremities: Present: no cyanosis, no clubbing, no edema Assessment and Plan - Assessment and plan all Dx Assessment and Plan for all problems:: #History of asthma: #COVID-19 pneumonia: Ms. Moreno is a 45-year-old female no significant smoking history, unvaccinated, prior history of COVID-19 pneumonia presented to the hospital worsening respiratory failure and found to be positive for COVID-19 pneumonia. Positive for sick contacts, her was diagnosed with COVID-19 pneumonia. Symptomatic for the last 2 weeks. IgG antibody positive. COVID-19 PCR also resulted positive Chest x-ray on admission showed bilateral patchy airspace disease with right lower lobe infiltrate/effusion. Inflammatory markers elevated with D-dimer 0.86, CRP at 109. Patient received monoclonal antibody infusion in the ER Interval update: No acute respiratory vents overnight. Patient admits only slightest improvement in her symptoms. She still complains of cough with productive phlegm. Patient is concerned about her respiratory symptoms if she gets discharged. Plan: -Sputum cultures -Continue Advair twice daily along with Spiriva scheduled (home medications) along with albuterol every 6 hours as needed -Continue levofloxacin community-acquired pneumonia. -Continue remdesivir and dexamethasone for COVID-19 pneumonia. -Continue oxygen supplementation to maintain O2 saturation goal of 88 to 92%, patient currently receiving 2 L nasal cannula, wean as tolerated #Thank you for involving pulmonary in this patient care. We will continue to follow.
--- NOTE | 2021-04-28 14:04 | PC.NURSE ---
Pt is alert and oriented x4. Some rhonchi noted to lungs. She remains on 2L NC with O2 sats running > 95%. Will wean as tolerated. She has ambulated to the bathroom independently and has tolerated well. Appetite is ok. No complaints verbalize. No change from morning assessment.
[2021-04-29] VITALS: O2SAT 95
--- NOTE | 2021-04-29 03:41 | PC.NURSE ---
A&OX4. TOLERATING RA WELL AT THIS TIME AND MAJORITY OF NIGHT. PT UP INDEPENDENTLY IN ROOM. PT HAS HAD NO C/O PAIN/SOA/COUGH. PT HAS BEEN ABLE TO SLEEP MAJORITY OF SHIFT. PROPER PPE IN USE. VSS WILL CONTINUE TO MONITOR.
[2021-04-29 04:00] VITALS: BP 132/88; PULSE 62; RESP 19; TEMP 36.7; O2SAT 95
[2021-04-29 05:00] VITALS: BMI 31.2
[2021-04-29 06:42] LABS: Basophils # 0.1 K/mm3 (0-0.2); Basophils % 1.5 % (0.1-2.0); Eosinophils % 0.2 % (0.1-12.0); Hematocrit 37.1 % (37.0-47.0); Hemoglobin 12.4 g/dL (12.2-16.2); Lymphocytes # 1.8 K/mm3 (0.7-4.5); Lymphocytes % 30.7 % (10-50); Mean Corpuscular HGB Conc 33.5 g/dL (31.8-35.4); Mean Corpuscular Hemoglobin 29.3 pg (27.0-31.2); Mean Corpuscular Volume 87.5 fl (81-99); Mean Platelet Volume 7.8 fl (7.4-10.4); Monocytes # 0.4 K/mm3 (0.1-1.0); Monocytes % 7.6 % (1.7-9.3); Neutrophils # 3.4 K/mm3 (1.8-7.8); Platelet Count 370 K/mm3 (142-424); Red Blood Count 4.24 M/mm3 (4.20-5.40); Red Cell Distribution Width 14.2 % (11.5-17.5); White Blood Count 5.7 K/mm3 (4.8-10.8)
[2021-04-29 07:11] LABS: Chloride 105 mmol/L (98-107); Potassium 4.1 mmoL/L (3.5-5.1); Sodium 142 mmol/L (136-145)
[2021-04-29 07:13] LABS: Alanine Aminotransferase 50 U/L (12-78); Anion Gap 13.1 mEq/L (5-15); Aspartate Amino Transferase 52 U/L (14-36); Blood Urea Nitrogen 14 mg/dl (7-17); Carbon Dioxide 28 mmol/L (22.0-30.0); Creatinine Clearance Estimated 151 mL/min (50-200); Estimated Glomerular Filt Rate 91 ml/min (>60); GFR (African American) 110 ML/MIN (>60)
[2021-04-29 07:14] LABS: Albumin Level 3.6 g/dl (3.5-5.0); Albumin/Globulin Ratio 1.2 (1.1-1.8); Alkaline Phosphatase 68 U/L (38-126); Bilirubin,Total 0.4 mg/dl (0.2-1.3); Calcium 8.9 mg/dl (8.4-10.2); Glucose 107 mg/dl (74-100); Total Protein,Serum 6.6 g/dl (6.3-8.2)
[2021-04-29 08:00] VITALS: BP 157/97; PULSE 64; RESP 20; TEMP 36.4; O2SAT 96
--- NOTE | 2021-04-29 08:35 | HMH.ACPN2 ---
Internal Medicine - PN: Subj *Date: 04/29/21 *Time: 08:35 Interval history: Patient states she feels about the same today. She gets short of breath with any movement and has to put on her oxygen. She did not sleep very well last night and appears more depressed. She denies any pain. Exam Vital signs and Labs for Last 24 Hours: Temp Pulse Resp BP Pulse Ox 98.0 F 62 19 132/88 95 04/29/21 04:00 04/29/21 04:00 04/29/21 04:00 04/29/21 04:00 04/29/21 04:00 Laboratory Results - last 24 hr 04/29/21 06:27: WBC 5.7, RBC 4.24, Hgb 12.4, Hct 37.1, MCV 87.5, MCH 29.3, MCHC 33.5, RDW 14.2, Plt Count 370, MPV 7.8, Neut % (Auto) 60.0, Lymph % (Auto) 30.7, [place] % (Auto) 7.6, Eos % (Auto) 0.2, Baso % (Auto) 1.5, Neut # (Auto) 3.4, Lymph # (Auto) 1.8, [place] # (Auto) 0.4, Eos # (Auto) 0.0, Baso # (Auto) 0.1 04/29/21 06:27: Sodium 142, Potassium 4.1, Chloride 105, Carbon Dioxide 28, Anion Gap 13.1, BUN 14 D, Creatinine 0.70, Estimated Creat Clear 151, Estimated GFR 91, Est GFR ( Amer) 110, Glucose 107 H, Calcium 8.9, Total Bilirubin 0.4, AST 52 H D, ALT 50 D, Alkaline Phosphatase 68, Total Protein 6.6, Albumin 3.6, Globulin 3.0, Albumin/Globulin Ratio 1.2 I & O for Last 24 hours: Intake & Output 04/26/21 04/27/21 04/28/21 04/29/21 11:59 11:59 11:59 11:59 Intake Total 720 / 720 3833 / 3833 4293 / 4293 420 / 420 Balance 720 / 720 3833 / 3833 4293 / 4293 420 / 420 Weight 206 lb 2 oz 205 lb 0.478 oz 206 lb 0.916 oz 206 lb 2 oz - Constitutional no acute distress - *Routine Respiratory Exam Present: wheezes. Absent: rales - *Routine Cardiovascular Exam Present: RRR - *Routine Abdominal Exam Present: soft, normoactive bowel sounds. Absent: tenderness - *Routine Extremities Exam Absent: cyanosis, clubbing, edema - *Routine Skin Exam Present: warm. Absent: rash - *Routine Neurological Exam Present: alert, oriented X3 Assessment and Plan (1) Pneumonia due to COVID-19 virus Status: Acute Category: Medical Code(s): U07.1 - COVID-19; J12.82 - Pneumonia due to coronavirus disease 2019 (2) Asthma Status: Chronic Category: Medical Code(s): J45.909 - Unspecified asthma, uncomplicated (3) Bipolar 1 disorder Status: Chronic Category: Medical Code(s): F31.9 - Bipolar disorder, unspecified (4) GERD (gastroesophageal reflux disease) Status: Chronic Category: Medical Code(s): K21.9 - Gastro-esophageal reflux disease without esophagitis - Assessment and plan all Dx Assessment and Plan for all problems:: We will continue current treatment. Pulmonology to follow.
--- NOTE | 2021-04-29 09:33 | DIET.NUTRFU ---
Pt continues with poor intakes ~50%, minimal intake breakfast this am. Daily ensure added to order. Weight stable, bowels normal, BG slightly elevated ~115.
--- NOTE | 2021-04-29 11:12 | HMH.PULMPN ---
Internal Medicine - PN: Subj *Date: 04/29/21 *Time: 11:12 Interval history: No acute respiratory overnight. Patient admits continued improvement in symptoms. Exam - Constitutional Constitutional:: Present: no acute distress, comfortable - HENMT Exam HENMT: Present: normocephalic, atraumatic - Eye Exam Eyes:: Present: normal appearance both eyes and related structures - Neck Exam Neck:: Present: normal visual inspection - Respiratory Exam Respiratory:: Present: able to speak in complete sentences, no respiratory distress. Absent: crackles, wheezing - Cardiovascular Exam Cardiac:: Present: S1, S2 - GI Exam GI:: Present: soft, no hepatosplenomegaly - Skin Exam Skin: Present: warm, no rash, dry - Neurological Exam Neurological: Present: alert, awake, normal cognition - Extremities Exam Extremities: Present: no cyanosis, no clubbing, no edema Assessment and Plan (1) Pneumonia due to COVID-19 virus Status: Acute Category: Medical Code(s): U07.1 - COVID-19; J12.82 - Pneumonia due to coronavirus disease 2019 (2) Asthma Status: Chronic Category: Medical Code(s): J45.909 - Unspecified asthma, uncomplicated (3) Bipolar 1 disorder Status: Chronic Category: Medical Code(s): F31.9 - Bipolar disorder, unspecified (4) GERD (gastroesophageal reflux disease) Status: Chronic Category: Medical Code(s): K21.9 - Gastro-esophageal reflux disease without esophagitis - Assessment and plan all Dx Assessment and Plan for all problems:: #History of asthma: #COVID-19 pneumonia: Ms. Moreno is a 45-year-old female no significant smoking history, unvaccinated, prior history of COVID-19 pneumonia presented to the hospital worsening respiratory failure and found to be positive for COVID-19 pneumonia. Positive for sick contacts, her was diagnosed with COVID-19 pneumonia. Symptomatic for the last 2 weeks prior to admission. IgG antibody positive. COVID-19 PCR also resulted positive Chest x-ray on admission showed bilateral patchy airspace disease with right lower lobe infiltrate/effusion. Inflammatory markers on admission elevated with D-dimer 0.86, CRP at 109. Patient received monoclonal antibody infusion in the ER Interval update: Patient respiratory status continued to improve. This morning patient weaned to room air with saturation maintained at 94 to 95%. Auscultation will bilateral clear breath sounds with no wheezing. Plan: -Continue Advair twice daily along with Spiriva scheduled (home medications) along with albuterol every 6 hours as needed -Continue levofloxacin community-acquired pneumonia for a total of 5 days from initiation. -Continue remdesivir and dexamethasone for COVID-19 pneumonia until discharge -Continue oxygen supplementation to maintain O2 saturation goal of 88 to 92%, patient currently receiving 2 L nasal cannula, wean as tolerated #Thank you for involving pulmonary in this patient care. We will follow the patient in pulmonary clinic in 4 weeks post discharge
[2021-04-29 12:00] VITALS: BP 144/93; PULSE 64; RESP 19; TEMP 36.4; O2SAT 96
--- NOTE | 2021-04-29 14:23 | P.PN_ITS ---
Internal Medicine - PN: Subj *Date: 04/29/21 *Time: 14:23 Interval history: Case discussed with Dr. Naik. He feels that patient is ready for discharge. He plans to follow-up in one week. No CT recommended at this point. Exam Vital signs and Labs for Last 24 Hours: Temp Pulse Resp BP Pulse Ox 97.6 F 64 19 144/93 H 96 04/29/21 12:00 04/29/21 12:00 04/29/21 12:00 04/29/21 12:00 04/29/21 12:00 Laboratory Results - last 24 hr 04/29/21 06:27: WBC 5.7, RBC 4.24, Hgb 12.4, Hct 37.1, MCV 87.5, MCH 29.3, MCHC 33.5, RDW 14.2, Plt Count 370, MPV 7.8, Neut % (Auto) 60.0, Lymph % (Auto) 30.7, [place] % (Auto) 7.6, Eos % (Auto) 0.2, Baso % (Auto) 1.5, Neut # (Auto) 3.4, Lymph # (Auto) 1.8, [place] # (Auto) 0.4, Eos # (Auto) 0.0, Baso # (Auto) 0.1 04/29/21 06:27: Sodium 142, Potassium 4.1, Chloride 105, Carbon Dioxide 28, Anion Gap 13.1, BUN 14 D, Creatinine 0.70, Estimated Creat Clear 151, Estimated GFR 91, Est GFR ( Amer) 110, Glucose 107 H, Calcium 8.9, Total Bilirubin 0.4, AST 52 H D, ALT 50 D, Alkaline Phosphatase 68, Total Protein 6.6, Albumin 3.6, Globulin 3.0, Albumin/Globulin Ratio 1.2 I & O for Last 24 hours: Intake & Output 04/27/21 04/28/21 04/29/21 04/30/21 11:59 11:59 11:59 11:59 Intake Total 3833 / 3833 4293 / 4293 900 / 900 360 / 360 Balance 3833 / 3833 4293 / 4293 900 / 900 360 / 360 Weight 205 lb 0.478 oz 206 lb 0.916 oz 206 lb 2 oz Assessment and Plan (1) Pneumonia due to COVID-19 virus Status: Acute Category: Medical Code(s): U07.1 - COVID-19; J12.82 - Pneumoni a due to coronavirus disease 2019 (2) Asthma Status: Chronic Category: Medical Code(s): J45.909 - Unspecified asthma, uncomplicated (3) Bipolar 1 disorder Status: Chronic Category: Medical Code(s): F31.9 - Bipolar disorder, unspecified (4) GERD (gastroesophageal reflux disease) Status: Chronic Category: Medical Code(s): K21.9 - Gastro-esophageal reflux disease without esophagitis - Assessment and plan all Dx Assessment and Plan for all problems:: dischaarge.
--- NOTE | 2021-04-30 21:26 | HMH.DCSUM ---
General - General Admission date:: 04/25/21 Discharge date: 04/29/21 HPI HPI: Ms. Moreno is a 45-year-old female with a history of asthma, anxiety/depression and bipolar disorder She presented to the emergency room with shortness of breath and extreme weakness. She describes being sick for 2 weeks. She felt her illness started with diarrhea and progressed with a cough and shortness of breath. She states her and daughter currently are ill with Covid but are in the recovery phase. She previously had Covid illness during the winter and recovered on her own and thought she could do so at this time as well. Thus she has not received the Covid immunization. In the emergency room her Covid test was positive. She received the monoclonal antibody infusion. Her O2 sats remained low and thus she was admitted for further evaluation and treatment. Chest x-ray on admission revealed the following: IMPRESSION: Right basilar atelectasis and or infiltrate with trace effusion A.m. of patient continues to feel extreme fatigue and is short of breath. She does have a congestive cough which is sometimes productive. Hospital Course Hospital Course: The web press operator apprentice was consulted and recommended continuing Advair twice a day along with Spiriva and albuterol every 6 hours as needed. He recommended initiating Levaquin for possible community-acquired pneumonia as well as remdesivir and dexamethasone. The patient continued to be dyspneic with any movement. Her chest felt tight. She was able to eat small amounts. She had a repeat chest x-ray showing a right lower lobe pneumonia slightly worse with increasing right basilar atelectasis. She did have slight improvement in her symptoms but continued with a cough with productive sputum. She was able to be weaned to room air with saturations of 94 to 95%. Pulmonology felt she could be discharged and should follow-up in 1 week. Objective Vital signs: Temp Pulse Resp BP Pulse Ox 97.6 F 64 19 144/93 H 96 04/29/21 12:00 04/29/21 12:00 04/29/21 12:00 04/29/21 12:04/29/21 12:00 Narrative: - Constitutional no acute distress - *Routine HEENT Exam Head: Present: normocephalic, atraumatic Eye: Present: PERRL. Absent: conjunctival icterus, scleral injection ENT: Present: mucous membranes moist, oropharynx clear - *Routine Neck Exam Present: supple. Absent: carotid bruit, lymphadenopathy, thyromegaly - *Routine Respiratory Exam Present: crackles (Bibasilar), diminished air movement Comments: congested cough - *Routine Cardiovascular Exam Present: RRR - *Routine Abdominal Exam Present: soft, normoactive bowel sounds. Absent: tenderness, distended - *Routine Rectal Exam Rectal:: deferred - *Routine Genitalia Exam Genitalia:: deferred - *Routine Extremities Exam Present: pulses intact. Absent: edema, full ROM, calf tenderness, pallor - *Routine Neurological Exam Present: alert, oriented X3 DS: Diagnosis - Discharge Diagnosis (1) Pneumonia due to COVID-19 virus Status: Acute (2) Asthma Status: Chronic (3) Bipolar 1 disorder Status: Chronic (4) GERD (gastroesophageal reflux disease) Status: Chronic Discharge Plan - Patient Discharge Instructions ACTIVITY: Limited activity DIET: advance to your usual diet Patient Instructions: DI for COVID-19 (Suspected or Confirmed ) - Follow up Plan Follow up with: Dianna Hernandez APRN [Primary Care Provider] - 05/06/21 11:00 am Jennie Naik MD [Physician] - 05/06/21 9:45 am (please have chest x-ray completed before dr. portillo.) Disposition: Home, Self-Care Condition at discharge:: Stable Home Medications: Home Medications Medication Instructions Recorded Confirmed Type Albuterol Sulfate [Albuterol 1 puff IH Q6 #1 hfa.aer.ad 04/25/21 Rx Sulfate Hfa] Buspirone HCl [Buspirone 15 mg 15 mg PO TID 04/25/21 04/25/21 History Tablets] Escitalopr
== END 2021-04-29 15:30 | disposition home or self-care (01) | DRG 177 ==
LOC: ER 19:36 → 2ND 19:54
PROVIDERS: Internal Medicine Pulmonary Disease; Admitting Provider Family Medicine; Emergency Provider Emergency Medicine; PCP Nurse Practitioner Family; Visit Provider Family Medicine
DX: U07.1 COVID-19 (principal); J12.82 Pneumonia due to coronavirus disease 2019; J96.90 Respiratory failure, unspecified, unspecified whether with hypoxia or hypercapnia; F31.9 Bipolar disorder, unspecified; J45.909 Unspecified asthma, uncomplicated; K21.9 Gastro-esophageal reflux disease without esophagitis; F41.9 Anxiety disorder, unspecified
CPT/HCPCS: 36415; 71045; 80053; 82803; 83615; 84484; 85007; 85025; 85378; 86140; 86328; 93005; 94640; 94760; 94761; 96365; 96375; 99284; J1956; J2405; U0003

== ENCOUNTER → 2021-05-06 10:26 | Outpatient (CLI) | payer MEDICAID, SELFPAY ==
--- NOTE | 2021-05-06 10:32 | XR_ITS ---
PROCEDURE: XR CHEST 2V CLINICAL HISTORY: Pneumonia COMPARISON: CR XR CHEST PORTABLE from 04/25/2021 CR XR CHEST PORTABLE from 04/28/2021 FINDINGS: The cardiomediastinal silhouette and pulmonary vascularity are within normal limits. Patchy ground-glass attenuation and atelectasis has shown improvement compared to the previous exam. There remains some faint increased density in the right lower lobe. The left lung is clear. No effusions. There is minimal upper thoracic curvature convex right. No acute bony abnormalities. IMPRESSION: Improving right lower lobe pneumonia and atelectasis Dictated by: Tu Bonds MD 05/06/2021 11:21 Tu Bonds MD in [facility] 05/06/2021 11:21
== END ==
PROVIDERS: PCP Nurse Practitioner Family; Visit Provider Internal Medicine Pulmonary Disease
DX: J12.82 Pneumonia due to coronavirus disease 2019 (principal); U07.1 COVID-19
CPT/HCPCS: 71046

== ENCOUNTER 2021-09-13 19:58 | Emergency (ER) | payer MEDICAID, SELFPAY ==
[2021-09-13 20:15] VITALS: BP 149/87; PULSE 98; RESP 20; TEMP 37; O2SAT 95; BMI 30.4
[2021-09-13 21:09] LABS: UTC Strep Screen (Rapid) Negative (Negative)
--- NOTE | 2021-09-13 21:11 | HMH.EDUTC ---
[facility] Disposition Clinical Impression: Bronchitis Sinusitis Qualifiers: Sinusitis location: unspecified location Chronicity: unspecified Qualified Code(s): J32.9 - Chronic sinusitis, unspecified Disposition: Home, Self-Care Condition on Discharge: Good Instructions: Sinusitis, DI for Sinusitis, DI for Acute Bronchitis, Acute Bronchitis Additional Instructions: ? Start antibiotic today. Be sure to complete entire prescription even if feeling better ? Monitor temp. Tylenol every 4 hours as needed and / or ibuprofen every 6 hours as needed ( As long as your primary care physician has told you that it ok to take both. For fever/aches/pains ER if no less than 101 despite Tylenol or Motrin ? Humidifier/vaporizer or hot steamy shower ? Inhaler every 4-6 hours as needed like we discussed. If unsure how to use it, ask pharmacist to demonstrate how. Should help open airways and improve cough, wheezing, and shortness of breath ? Mucinex during the day for your cough and cough suppressant only at night. Be sure to drink lots of water. Insurance may not cover a prescriptions for mucinex. Might be cheaper to get 400mg tablets and take 2 tablet in the morning, mid-day and evening with lots of water. *Start steroid today. Helps with inflammation therefore, cough and wheezing. Follow directions on the package. Reviewed side effects. Patient reports taking them before. Follow up IMMEDIATELY for new or worsening of symptoms OR no noticeable improvement over the next 48-72 hours. 911 immediately for any life threatening symptoms such as chest pain or difficulty breathing Prescriptions: guaiFENesin [Mucinex 600mg tablet] 1 - 2 tab PO Q12HP PRN #20 tab PRN Reason: Congestion Transmission Status: Pending to [id number] levoFLOXacin [Levaquin 750mg tablet] 750 mg PO DAILY 5 Days #5 tab Transmission Status: [facility] Referrals: Dianna Hernandez APRN [Primary Care Provider] - As needed Time of Disposition: 21:45 Medical Decision Making - [place] Inquiry Pt receiving controlled substance: No [place] was queried for this patient: No Vital Signs: 09/13/21 20:15 09/13/21 21:19 Temperature 98.6 F 98.6 F Temperature Source Oral Pulse Rate 98 H Pulse Rate [Right Brachial] 98 H Respiratory Rate 20 20 Blood Pressure 149/87 H Blood Pressure [Right Arm] 149/87 H Blood Pressure Mean [Right Arm] 107 Blood Pressure Source [Right Arm] Automatic Cuff Blood Pressure Position [Right Arm] Sitting 02 Sat by Pulse Oximetry 95 Oxygen Delivery Method Room Air - Lab Data Lab results reviewed: Yes: I reviewed the patient's lab results. Lab Results 09/13/21 20:36: Strep Scn Rapid Clinic Negative Orders (Tests/Meds): ORDERS Category Date Time Status Covid-19 Nasal PCR ([facility]) Routine Lab 09/13/21 20:27 Received Strep Screen Confirmation Routine Micro 09/13/21 20:36 Received Medical Decision Narrative: discussed cxr patient declined at this time states that she doesnt want to wait States that she wanted to get treated Medication discussed with pharmacy Levaquin 750mg daily x 5 days Again recommended cxr and patient declined [facility] HPI - General Stated complaint: cough,SOB, Congestion Time Seen by Provider: 09/13/21 21:11 Mode of Arrival: Ambulatory Source of Information: Patient Limitations: No Limitations Description of Symptoms (Recalled from Triage Doc. by RN): PATIENT C/O COUGH, CONGESTION, SORE THROAT, SOA, HEADACHE, AND FATIGUE X 1 MONTH. RECENTLY EXPOSED TO COVID HEENT Symptoms (Recalled from RN notes): Yes Resp Symptoms (Recalled from RN notes): Yes Skin Symptoms (Recalled from RN notes): No MS Symptoms (Recalled from RN notes): No Functional Status (Recalled from RN notes): WNL - History of Present Illness Provider Complaint: Patient state that she has been sick for close to a month State that he had strep throat first and was on antibiotics then had a cold State that recently she was shaji
[2021-09-13 21:19] VITALS: BP 149/87; PULSE 98; RESP 20; TEMP 37; O2SAT 95
== END 2021-09-13 21:54 | disposition home or self-care (01) ==
PROVIDERS: Emergency Provider Nurse Practitioner; PCP Nurse Practitioner Family
DX: J20.9 Acute bronchitis, unspecified (principal); J32.9 Chronic sinusitis, unspecified; J45.909 Unspecified asthma, uncomplicated; K21.9 Gastro-esophageal reflux disease without esophagitis; F41.8 Other specified anxiety disorders; Z20.822 Contact with and (suspected) exposure to COVID-19
CPT/HCPCS: 87880; 96372; 99202; C9803; G0463; J0696; U0003; U0005

== ENCOUNTER 2022-07-10 12:45 | Emergency (ER) | payer MEDICAID, SELFPAY ==
[2022-07-10 13:40] VITALS: BP 140/94; PULSE 94; RESP 20; TEMP 37.3; O2SAT 96; BMI 31.9
--- NOTE | 2022-07-10 13:42 | EXP.UTC ---
Discharge Plan Disposition Patient Disposition: Home, Self-Care Prescriptions Prescriptions: New phenazopyridine [Pyridium] 200 mg tablet 200 mg PO Q8H 2 Days Qty: 6 0RF cefdinir 300 mg capsule 300 mg PO BID Qty: 20 0RF No Action levofloxacin 750 MG tablet 750 mg PO DAILY 5 Days Qty: 5 0RF guaifenesin 600 MG tablet extended release 12hr 1 - 2 tab PO Q12HP PRN (Reason: Congestion) Qty: 20 0RF Rx Instructions: Make sure to drink water with this medication Referrals Follow up/Referrals: Nina Merritt APRN [Primary Care Provider] - See instructions Activity Restrictions/Add. Instructions Additional Instructions/Restrictions: Drink plenty of fluids. Take tylenol or ibuprofen for pain or fever. Take the medications as directed. Follow up with your regular doctor. GO TO THE ER FOR ANY WORSENING SYMPTOMS The pyridium will make your urine turn orange, this is an expected side effect. It will stain your clothes if it comes into contact with them. We will culture the urine. That will tell what bacteria is causing your infection and which antibiotics will treat it best. Sometimes the first antibiotic we prescribe turns out to not work against different bacteria. So, make sure you follow up within 3 days if you are not getting better. Clinical Impressions Clinical Impression: Urinary tract infection Instructions Patient Instructions: Urine Culture, DI for Urinary Tract Infection (UTI), Phenazopyridine Discharge ED Provider: Nicho Medellin [facility] [place] HPI General Stated complaint: painful urination,frequency Time Seen by Provider: 07/10/22 13:42 History of Present Illness Provider Complaint: She c/o dysuria, urinary frequency, and low back pain for the past 2 days. She has been getting frequent uti's for the past several months. Related Data Previous Rx's Medication Instructions Recorded guaifenesin 600 mg tablet, 1 - 2 tab PO Q12HP PRN Congestion 09/13/21 extended release 12 hr #20 tabs levofloxacin 750 mg tablet 750 mg PO DAILY 5 days #5 tabs 09/13/21 cefdinir 300 mg capsule 300 mg PO BID #20 caps 07/10/22 phenazopyridine 200 mg tablet 200 mg PO Q8H 2 days #6 tabs 07/10/22 (Pyridium) Allergies Allergy/AdvReac Type Severity Reaction Status Date / Time bee venom protein (honey bee) Allergy Severe Anaphylaxis Verified 08/21/21 17:08 nitrofurantoin Allergy Verified 09/13/21 20:38 [From Macrobid] [facility] Medical History History of 2019 novel coronavirus disease (COVID-19) Mild persistent asthma Surgical History History of section History of tubal ligation Family History Other Alcoholism Anemia Asthma Cancer Coronary artery disease Diabetes FHx: mental illness Heart attack Hyperlipidemia Hypertension Stroke Substance abuse Thyroid disorder Social History Smoking Status: Never smoker alcohol intake: former current occupational status: disabled Travel in the last 8 weeks: None household members: spouse and children housing: apartment caffeine: Yes ROS Obtained: Yes All systems reviewed & no additional complaints except as documented Constitutional Constitutional: Denies chills and Denies fever(s) Eyes Eyes: Denies eye discharge ENT Ears, Nose, Mouth, and Throat: Denies dizziness, Denies otalgia and Denies sore throat Cardiovascular Cardiovascular: Denies chest pain Respiratory Respiratory: Denies shortness of breath, Denies chest congestion, Denies cough, Denies stridor and Denies wheezing Gastrointestinal Gastrointestingal: Denies nausea or vomiting Musculoskeletal Musculoskeletal: Reports system reviewed and no additional complaints, except as documented and Denies arthralgias Integumentary/Yodit
[2022-07-10 14:18] LABS: Apearance,Urine Clear (Clear); Color,Urine Yellow (Yellow)
[2022-07-10 14:19] LABS: Bilirubin,Urine Negative (Negative); Blood, Urine Trace (Negative); Glucose,Urine (UA) Negative (Negative); Ketones,Urine Negative (Negative); Protein,Urine Negative (Negative); UTC Leukocyte Esterase,Urine 1+ (Negative); UTC Nitrate,Urine Negative (Negative); Urobilinogen,Urine 0.2 EU/dl (0.2)
[2022-07-10 14:32] VITALS: BP 140/94; PULSE 94; RESP 20; TEMP 37.3; O2SAT 96
== END 2022-07-10 14:35 | disposition home or self-care (01) ==
PROVIDERS: Emergency Provider Nurse Practitioner Family; PCP Nurse Practitioner Family
DX: N39.0 Urinary tract infection, site not specified (principal); J45.30 Mild persistent asthma, uncomplicated; Z86.16 Personal history of COVID-19; M54.50 Low back pain, unspecified; Z79.899 Other long term (current) drug therapy; Z88.8 Allergy status to other drugs, medicaments and biological substances; Z91.030 Bee allergy status; Z87.440 Personal history of urinary (tract) infections; Z82.49 Family history of ischemic heart disease and other diseases of the circulatory system; Z83.438 Family history of other disorder of lipoprotein metabolism and other lipidemia; Z83.49 Family history of other endocrine, nutritional and metabolic diseases; Z81.1 Family history of alcohol abuse and dependence; Z81.3 Family history of other psychoactive substance abuse and dependence; Z81.8 Family history of other mental and behavioral disorders; Z83.3 Family history of diabetes mellitus; Z82.5 Family history of asthma and other chronic lower respiratory diseases; Z80.9 Family history of malignant neoplasm, unspecified
CPT/HCPCS: 81003; 87086; 87088; 87186; 99213; G0463

== ENCOUNTER → 2022-10-24 13:03 | Outpatient (CLI) | payer MEDICAID, SELFPAY ==
[2022-10-24 13:55] VITALS: PULSE 80; PULSE 84
== END ==
PROVIDERS: PCP Nurse Practitioner Family; Visit Provider Internal Medicine Pulmonary Disease
DX: R06.09 Other forms of dyspnea (principal)
CPT/HCPCS: 94060; 94640; 94727; 94729

== ENCOUNTER → 2023-01-22 15:17 | Outpatient (CLI) | payer MEDICAID, SELFPAY ==
--- NOTE | 2023-01-22 15:23 | US_ITS ---
FINAL REPORT CLINICAL HISTORY: abnormal utering bleeding FINDINGS: Transvaginal sonographic images of the pelvis were obtained. The uterus measures 8.4 x 5.5 x 4.2. The endometrium measures 10 mm, which is within normal limits. A 1.9 cm heterogeneous mass in in the uterus is consistent with a fibroid. The right ovary measures 2.6 cm in length and left ovary measures 3.1 cm in length. Normal blood flow seen to the ovaries. Small follicles are present without a dominant mass. There is no evidence of free fluid. IMPRESSION: Uterine fibroid. Reviewed, Interpreted and Dictated by Jignesh Richards III, MD Transcribed by Nayeli Wheat Authenticated and [facility]
== END ==
PROVIDERS: PCP Nurse Practitioner Family; Visit Provider Obstetrics & Gynecology
DX: N93.9 Abnormal uterine and vaginal bleeding, unspecified (principal)
CPT/HCPCS: 36415; 76830; 84443

== ENCOUNTER → 2023-03-28 15:34 | Outpatient (CLI) | payer MEDICAID, SELFPAY ==
[2023-03-28 16:36] LABS: Basophils % 0.6 % (0.1-2.0); Eosinophils # 0.2 K/mm3 (0.0-0.4); Eosinophils % 3.1 % (0.1-12.0); Hematocrit 41.1 % (37.0-47.0); Lymphocytes # 1.5 K/mm3 (0.7-4.5); Lymphocytes % 25.1 % (10-50); Mean Corpuscular HGB Conc 31.5 g/dL (31.8-35.4); Mean Corpuscular Volume 95.4 fl (81-99); Mean Platelet Volume 7.5 fl (7.4-10.4); Monocytes # 0.3 K/mm3 (0.1-1.0); Neutrophils # 3.9 K/mm3 (1.8-7.8); Neutrophils % 66.2 % (37.0-80.0); Platelet Count 328 K/mm3 (142-424); Red Blood Count 4.31 M/mm3 (4.20-5.40); Red Cell Distribution Width 13.1 % (11.5-17.5)
[2023-03-28 16:59] LABS: Alanine Aminotransferase 26 U/L (12-78); Albumin Level 4.9 g/dl (3.5-5.0); Alkaline Phosphatase 58 U/L (38-126); Aspartate Amino Transferase 24 U/L (14-36); Bilirubin,Total 0.5 mg/dl (0.2-1.3); Blood Urea Nitrogen 9 mg/dl (7-17); Calcium 9.8 mg/dl (8.4-10.2); Carbon Dioxide 26 mmol/L (22.0-30.0); Chloride 108 mmol/L (98-107); Estimated Glomerular Filt Rate 90 ml/min (>60); GFR (African American) 109 ML/MIN (>60); Globulin 2.4 g/dL (1.3-3.2); Glucose 79 mg/dl (74-100); Sodium 142 mmol/L (136-145); Total Protein,Serum 7.3 g/dl (6.3-8.2)
[2023-03-28 17:18] LABS: HCG,Quantitative < 2 mIU/ml (0-5.42)
== END ==
PROVIDERS: PCP Nurse Practitioner Family; Visit Provider Obstetrics & Gynecology
DX: Z01.812 Encounter for preprocedural laboratory examination (principal); N93.9 Abnormal uterine and vaginal bleeding, unspecified
CPT/HCPCS: 36415; 80053; 84702; 85025

== ENCOUNTER 2023-04-04 07:29 | Day surgery (SDC) | payer MEDICAID, SELFPAY ==
[2023-04-03 12:23] VITALS: BMI 20.9
[2023-04-04] VITALS (11 sets, daily range): BP systolic 120–145; BP diastolic 59–85; PULSE 58–78; RESP 14–18; TEMP 36.2–36.4; O2SAT 97–100
--- NOTE | 2023-04-04 08:05 | EXP.ANES.CKL ---
[facility] Disclaimer: The information contained in this section may have been updated after the patient was seen, as this information can be updated by other users. Medical History Abnormal uterine bleeding Allergic rhinitis Asthma Asthma Dyspnea History of 2019 novel coronavirus disease (COVID-19) Mild persistent asthma Narcolepsy Vaginal odor Surgical History History of section History of tubal ligation Family History Other Alcoholism Anemia Asthma Cancer Coronary artery disease Diabetes FHx: mental illness Heart attack Hyperlipidemia Hypertension Stroke Substance abuse Thyroid disorder Social History (Updated 04/04/23 @ 07:49 by Ivanna Joyner RN) Smoking Status: Never smoker alcohol intake: former substance use type: denies use current occupational status: employed Travel in the last 8 weeks: None household members: spouse and children housing: apartment caffeine: Yes [facility] Anesthesia Checklist Patient Identification Patient Identification: Arm Band and Verbal (Name & ) Structural Data Admitted From: Home Planned Operative Procedure/s: D&C hysteroscopy Consent for Planned Operative Procedure(s) Verified: Yes Verified Documents: Surgical Consent NPO Status Verified Time NPO: 00:00 Additional verifications Patient : No Anesthesia Reactions: No Hx Blood Transfusions: No Blood Transfusion Reaction: No Airway Assessment C-Spine Mobility Assessed: Yes TMJ Mobility Assessed: Yes Dentition: Good Dentition Neurological Assessment Level of Consciousness: Follows Commands and Drowsy Hx Seizures: No Anesthesia Plan Anesthesia Risk discussed: Yes ASA Class: II Anesthesia Type: General
--- NOTE | 2023-04-04 09:39 | EXP.ANES.I ---
[facility] Anesthesia Record Part I Anesthesia Record I Intake, IV Amount: 800 Estimated blood loss (mL): 2 Urine output (mL): 0 Blood Products used (#): none Blood Pressure: 132/85 SaO2: 100 Pulse Rate: 64 Respiratory Rate: 16 Temperature: 97.6 F Patient is:: Drowsy and Stable Stable to PACU at:: 09:40
--- NOTE | 2023-04-04 09:48 | EXP.OP.NOTE ---
Date of procedure: 04/04/23 Pre-op Diagnosis:: 1. Abnormal uterine bleeding Post-op Diagnosis:: 1. Abnormal uterine bleeding Procedure performed:: Hysteroscopy, dilation and curettage, Novasure endometrial ablation Surgeon:: Heena Bangura DO Washer Off(s):: N/a [employer]:: Tyron Connors Anesthesia: GETA Estimated blood loss (mL): 2 Clinical Note:: Ms Bella Moreno is a very pleasant 47 yo [id number] who presents to [facility] for scheduled surgery. She complains of irregular periods. She reports bleeding for 2-3 weeks every month and then spots before and after. Bleeding most of the month. She admits she has lost 85 pounds in the past 7 months. She admits abnormal bleeding started a few months ago... after she started losing weight. Ultrasound showed small, 1.9 cm fibroid, otherwise within normal limits. TSH within normal limits. History of x 2 and x 1. History of tubal ligation. Operative findings:: 1. On bimanual exasm, uterus normal size and shape, midline. No adnexal masses palpated. 2. On hysteroscopic exam, bilateral tubal ostia easily visualized. Small amount of endometrial tissue within the cavity. No masses or lesions noted. Operative note:: Risks, benefits and alternatives were discussed with the patient. Risks include but are not limited to bleeding, infection, uterine perforation and VTE. Patient voiced understanding and agreed to proceed. She was wheeled back to the operating room and placed under general anesthesia without difficulty. She was placed in dorsal lithotomy position and prepped and draped in the normal sterile fashion. A bimanual exam was performed. A weighted Auvard was placed in the vaginal vault. Single tooth tenaculum was placed on anterior lip of the cervix. Uterus sounded to 8. Sequential Lavon dilators were used to dilate the cervical os. Hysteroscope was tested inserted through the cervix without difficulty. Endometrial cavity was evaluated. See findings above. Pictures were taken. Hysteroscope was removed. Medium size sharp curette was inserted through the cervix into the uterine cavity. The endometrial cavity was curetted with a systematic aedv-diu-silac movement of the curette so that all possible endometrium was sampled. Endometrial curettings will be sent to pathology for review. Novasure sure sound was used to obtain uterine length. Uterus measured 5 cm in length and 4.4 cm in cavity width. Novasure deviced was inserted and ablation was performed per protocol at a power of 121 w for 112 seconds. Novasure device was removed. Hysteroscope was reinserted and cavity revealed adequate burn and no uterine perforation. Hysteroscope was removed. Instruments were removed from the vagina. Tenaculum site was noted to be hemostatic. Patient was awaken from anesthesia without difficulty. She was transported to recovery room in stable condition. Patient will be discharged home when awake and ambulating. She was given postop instructions as well as instructions to follow-up in the office in 2 weeks at which time pathology will be reviewed. Condition: stable Disposition: same day Specimens:: 1. Endometrial curettings Complications:: None
--- NOTE | 2023-04-04 11:09 | SUR.PHASEII ---
jacobo notified in pharmacy that Oxycodone order could give 2 tabsfor moderate pain. 2 tabs given, verbalized would fix it in MAR
--- NOTE | 2023-04-04 12:51 | P.PNANES_ITS ---
[facility] Anesthesia Record Part II Anesthesia Record Part II Discharge Time: 10:10 Destination: Surgical Day Care (OP Surgery) PACU nurse assessment reviewed?: Yes Patient Condition:: Good Anesthesia Complications:: None Swallowing reflex intact?: Yes Cyanosis?: No Blood Pressure: 126/59 Pulse Rate: 73 Temperature: 97.2 F Mental Status: Alert & Oriented Pain level:: 2 Nausea and/or vomitting:: None Intake, IV Amount: 0
== END 2023-04-04 11:05 | disposition home or self-care (01) ==
PROVIDERS: PCP Nurse Practitioner Family; Visit Provider Obstetrics & Gynecology
PROC: (CPT 58563; principal; 2023-04-04 09:15)
DX: N93.9 Abnormal uterine and vaginal bleeding, unspecified (principal)
CPT/HCPCS: 58563; J2405